=== PATIENT | male | born 1990 | race Caucasian/White ===

== ENCOUNTER 2016-10-24 11:28 | Emergency (ER) | payer OTHER ==
[2016-10-24 11:46] VITALS: BMI 25.1
[2016-10-24 11:49] VITALS: RESP 20; O2SAT 97
--- NOTE | 2016-10-24 12:03 | C.PDOC ---
History Of Present Illness 26 yo male c/o right thumb pain since Monday- 5 days ago. Notes he was at work, picked up a steel beam and felt too much pressure on this thumb. Since then, pain with movement. No direct trauma. No change in sensation. Right hand dominant. Time Seen by Provider: 10/24/16 11:45 Chief Complaint (Nursing): Finger,Hand,&Wrist History Per: Patient History/Exam Limitations: no limitations Onset/Duration Of Symptoms: Days Current Symptoms Are (Timing): Still Present Past Medical History Reviewed: Historical Data, Nursing Documentation, Vital Signs Vital Signs: Last Vital Signs Temp 98 F 10/24/16 12:50 Pulse 70 10/24/16 12:50 Resp 20 10/24/16 12:50 BP 109/72 10/24/16 12:50 Pulse Ox 97 10/24/16 12:50 Family History: States: Unknown Family Hx - Social History Hx Tobacco Use: Yes Hx Alcohol Use: No Hx Substance Use: Yes - Immunization History Hx Tetanus Toxoid Vaccination: No Hx Influenza Vaccination: Yes Hx Pneumococcal Vaccination: No Review Of Systems Except As Marked, All Systems Reviewed And Found Negative. Constitutional: Negative for: Fever Musculoskeletal: Positive for: Hand Pain Neurological: Negative for: Weakness, Numbness Physical Exam - Physical Exam Appears: Well, Non-toxic, No Acute Distress Skin: Warm, Dry Head: Atraumatic, Normacephalic Eye(s): bilateral: Normal Inspection, EOMI Nose: Normal Oral Mucosa: Moist Neck: Normal, Normal ROM, Supple Chest: Symmetrical Respiratory: No Accessory Muscle Use Back: Normal Inspection Extremity: Normal ROM, Tenderness ((+) TTP to the right MCP with mild swelling) , Capillary Refill (<2 sec) Pulses: Left Radial: Normal, Right Radial: Normal Neurological/Psych: Oriented x3, Normal Speech, Normal Motor, Normal Sensation ED Course And Treatment O2 Sat by Pulse Oximetry: 97 - Other Rad Thumb XR X-Ray: Viewed By Me, Read By Radiologist Progress Note: Finger splint applied by equine pharmacology technician. Instructed to follow up with hand specialist in 1-2 days. Disposition - Disposition Referrals: Parris Muse MD [Staff Provider] - Disposition: HOME/ ROUTINE Disposition Time: 13:00 Condition: GOOD Additional Instructions: rest, ice and elevate the area. Follow up with hand specialist in 1-2 days. Return to ER if symptoms persist or worsen. Prescriptions: Naproxen [Naprosyn] 1 tab PO BID PRN #20 tab PRN Reason: Pain Instructions: Jammed Finger (ED) Forms: [facility] ([place]) - Clinical Impression Clinical Impression: Finger sprain
--- NOTE | 2016-10-24 12:31 | RAD ---
PROCEDURE: Right Thumb radiographs. HISTORY: pain COMPARISON: Correlation made with prior radiographs of the right wrist 08/14/2013 an right hand dated 02/13/2012. TECHNIQUE: PA radiograph of the right hand, as well as spot oblique and lateral images of thumb were obtained. FINDINGS: RIGHT THUMB: Normal right thumb, without fracture or focal lesion. Remainder of the right hand (as seen on the PA view) grossly unremarkable. JOINTS: Normal. SOFT TISSUES: Normal. OTHER FINDINGS: None. IMPRESSION: No evidence of acute displaced fracture nor dislocation. If symptoms persist or occult fracture suspected clinically recommend repeat radiographs in 5-10 days as most fractures should become radiographically evident in this timeframe. .
[2016-10-24 12:50] VITALS: BP 109/72; PULSE 70; TEMP 98
== END 2016-10-24 12:55 | disposition home or self-care (01) ==
LOC: C.ER 11:28
DX: S63.601A Unspecified sprain of right thumb, initial encounter (principal); X50.9XXA Other and unspecified overexertion or strenuous movements or postures, initial encounter; Y99.0 Civilian activity done for income or pay